=== PATIENT | female | born 1995 | race Caucasian/White ===

== ENCOUNTER 2017-03-02 17:25 | Emergency (ER) | payer MEDICAID ==
[~2017-03-02] VITALS: Ht 152.4 cm; Wt 52.9 kg
[~2017-03-02 17:25] MED LIST: CALC-143 PO; IBUP-1542 PO; PREN1TAB79 PO
[2017-03-02 17:37] VITALS: Ht 152.4 cm; Wt 52.9 kg
[2017-03-02] MEDS ORDERED: IBUPROFEN 600 MG TAB PO ONE (18:00)
--- NOTE | 2017-03-02 18:16 | ERD ---
ER Documentation Chief Complaint Chief Complaint Low back pain HPI 21-year-old female comes in with left-sided low back pain radiating down her left leg for over a year since she was . Patient states that she began having this pain and has been on and off for worsening over the last 3 days. She describes as an achy pain, diffuse, worse when she is walking or moving and better at rest. She is requesting x-rays at this time because she was told that they were not able to obtain any when she was . She denies saddle anesthesia loss of bowel bladder function, or any trauma associated. She denies fevers or chills, urinary complaints or hematuria. ROS All systems reviewed and are negative except as per history of present illness. Medications Home Meds Active Scripts Ibuprofen* (Motrin*) 600 Mg Tab, 600 MG PO Q6, #30 TAB Prov:LIBIA GUILLORY PA-C 03/02/17 Ibuprofen* (Ibuprofen*) 600 Mg Tablet, 600 MG PO Q6, #20 TAB 0 Refills Prov:SIGRID ALEXANDER MD 01/10/16 Reported Medications Calcium Citrate/Vitamin D (Citracal-Vitamin D 200 MG-250) 1 Each Tablet, 1 EACH PO BID, TAB 12/21/15 Vit W-Ca,Fe,FA(<1 mg) ( Vitamins) 1 Each Tablet, 1 EACH PO for 7 Days, TAB 10/24/15 Allergies Allergies: Coded Allergies: No Known Allergy (Unverified , 12/15/15) PMhx/Soc History of Surgery: No Anesthesia Reaction: No Hx Neurological Disorder: No Hx Respiratory Disorders: No Hx Cardiac Disorders: No Hx Psychiatric Problems: No Hx Miscellaneous Medical Probl: No Hx Alcohol Use: No Hx Substance Use: No Hx Tobacco Use: No Physical Exam Vitals Vital Signs Date Time Temp Pulse Resp B/P Pulse Ox O2 Delivery O2 Flow Rate FiO2 03/02/17 17:37 98.0 82 20 119/66 100 Physical Exam General: Well-developed, well-nourished. The patient appears in no acute distress. HEENT: Head is normocephalic, atraumatic. No scleral icterus. Neck: Supple. Nontender. Lungs: Clear to auscultation. Normal air movement. Heart: Regular rate and rhythm. S1 and S2 are normal. No murmurs, gallops, or rubs. Abdomen: Soft, nontender, nondistended. Bowel sounds are normoactive. Back: No midline pain, no step-offs, no ecchymosis, warmth, skin changes or rashes. Strength lower extremities 5 out of 5 bilaterally. Extremities: No clubbing or cyanosis. Normal pulses. Moving extremities x 4. No weakness. Neurologic: Alert and oriented 3. No focal deficits. Skin: Normal turgor. No rash or lesions. Results 24 hrs Current Medications Medications (Trade) Dose Ordered Sig/Kitty Route PRN Reason Start Time Stop Time Status Last Admin Dose Admin Ibuprofen (Motrin) 600 mg ONCE ONCE PO 03/02/17 18:00 03/02/17 18:01 DC 03/02/17 18:10 DIAGNOSTIC IMAGING REPORT Patient: DANNY COLON : 1995 Age: 21 Sex: F MR #: [id number] DOS: 03/02/17 1759 Ordering MD: LIBIA GUILLORY PA-C Location: [facility] Room/Bed: PROCEDURE: XR Lumbar Spine. CLINICAL INDICATION: Back pain for 3 days. TECHNIQUE: Three views. AP, lateral and cone-down lateral view of the lumbar spine were obtained. COMPARISON: No prior studies are available for comparison. FINDINGS: There is normal stature and alignment of the vertebrae. There is no fracture. There is no lytic or blastic lesion. The disk height is normal. The paravertebral soft tissues are unremarkable. IMPRESSION: 1. Unremarkable images of the lumbar spine. RPTAT: QQ .Kit Rossi MD, MD Date Time Electronically viewed and signed by .Kit Rossi MD, MD on 03/02/2017 19:36 .R/ CC: LIBIA GUILLORY PA-C Procedures/MDM 21-year-old female presents with low back pain on the left side, with radicular symptoms, most consistent with sciatica. She was advised that this is likely sciatica related, and unrelated to bony issues, but she is requesting an x-ray at this time. She does not show any signs of cauda equina, epidural abscess, discitis, dissection, UTI, pyelonephritis. X-ray is normal at this time, no bony abnormalities. Patient will be advised to take ibuprofen, return for any worsening symptoms including fever. Departure Diagnosis: Primary Impression: Sciatica Condition: Good LIBIA GUILLORY PA-C Mar 02, 2017 18:16
--- NOTE | 2017-03-02 19:36 | RADRPT ---
PROCEDURE: XR Lumbar Spine. CLINICAL INDICATION: Back pain for 3 days. TECHNIQUE: Three views. AP, lateral and cone-down lateral view of the lumbar spine were obtained. COMPARISON: No prior studies are available for comparison. FINDINGS: There is normal stature and alignment of the vertebrae. There is no fracture. There is no lytic or blastic lesion. The disk height is normal. The paravertebral soft tissues are unremarkable. IMPRESSION: 1. Unremarkable images of the lumbar spine. RPTAT: QQ .Kit Rossi MD, MD Date Time Electronically viewed and signed by .Kit Rossi MD, on 03/02/2017 19:36 .R/
[2017-03-02] MEDS ORDERED: IBUP-1542 PO (19:45)
== END 2017-03-02 19:54 | disposition home or self-care (01) ==
LOC: FTE 17:25
DX: M54.42 Lumbago with sciatica, left side (principal)
CPT/HCPCS: 72100; Z7502; Z7610

== ENCOUNTER 2017-07-01 22:12 | Emergency (ER) | END 2017-07-02 00:16 | disposition home or self-care (01) ==

== ENCOUNTER 2018-07-31 13:47 | Emergency (ER) | payer MEDICAID ==
[~2018-07-31] VITALS: Ht 157.5 cm; Wt 52.2 kg
[~2018-07-31 13:47] MED LIST changes: +CYCL10TA7 PO; +IBUP800T48 PO
[2018-07-31 13:49] VITALS: BP 139/65; PULSE 88; RESP 18; Ht 157.5 cm; Wt 52.2 kg
[2018-07-31] MEDS ORDERED: LIDOCAINE 1% (MPF) 5 ML VIAL INJ ONE (15:00)
[2018-07-31] MEDS ORDERED: BACI28.34 TOP (15:24)
--- NOTE | 2018-07-31 15:31 | ERD ---
ER Documentation Chief Complaint Chief Complaint LACERATION @ LEFT INDEX FINGER HPI 23-year-old female presenting with a laceration to left index finger. Patient was cutting with a knife and cut her index finger. She had her last tetanus shot 2 years ago. [id number]. Denies other medical problems. NKDA. Surgical history denies. Social history denies ROS All systems reviewed and are negative except as per history of present illness. Medications Home Meds Active Scripts Bacitracin* (Bacitracin Zinc Oint*) 28.35 Gm Oint, 1 APPLIC TOP BID, #1 TUB APPLI TO Prov:JAYOLN JACOBO PA-C 07/31/18 Ibuprofen* (Motrin*) 800 Mg Tab, 800 MG PO Q6H PRN for PAIN AND OR ELEVATED TEMP, #30 TAB Prov:LAURENCE PEARCE 07/01/17 Cyclobenzaprine Hcl* (Cyclobenzaprine Hcl*) 10 Mg Tablet, 10 MG PO Q12, #20 TAB Prov:LAURENCE PEARCE 07/01/17 Ibuprofen* (Motrin*) 600 Mg Tab, 600 MG PO Q6, #30 TAB Prov:LIBIA GUILLORY PA-C 03/02/17 Ibuprofen* (Ibuprofen*) 600 Mg Tablet, 600 MG PO Q6, #20 TAB 0 Refills Prov:SIGRID ALEXANDER MD 01/10/16 Reported Medications Calcium Citrate/Vitamin D (Citracal-Vitamin D 200 MG-250) 1 Each Tablet, 1 EACH PO BID, TAB 12/21/15 Vit W-Ca,Fe,FA(<1 mg) ( Vitamins) 1 Each Tablet, 1 EACH PO for 7 Days, TAB 10/24/15 Allergies Allergies: Coded Allergies: No Known Allergy (Unverified , 07/31/18) PMhx/Soc History of Surgery: No Anesthesia Reaction: No Hx Neurological Disorder: No Hx Respiratory Disorders: No Hx Cardiac Disorders: No Hx Psychiatric Problems: No Hx Miscellaneous Medical Probl: No Hx Alcohol Use: No Hx Substance Use: No Hx Tobacco Use: No Smoking Status: Never smoker FmHx Family History: No diabetes, No coronary disease, No other Physical Exam Vitals Vital Signs Date Temp Pulse Resp B/P (MAP) Pulse Ox O2 O2 Flow FiO2 Time Delivery Rate 07/31/18 98.2 88 18 139/65 100 13:49 (89) Physical Exam GENERAL: The patient is well-appearing, well-nourished, in no acute distress CHEST: Clear to auscultation bilaterally. There are no rales, wheezes or rhonchi. HEART: Regular rate and rhythm. No murmurs, clicks, rubs or gallops. EXTREMITIES: Able to nicely at the DIP and PIP joint. Neurovascularly intact. No active bleeding. NEUROLOGIC: Alert and oriented. Cranial nerves II through XII intact. Motor strength in all 4 extremities with 5 out of 5 strength. Sensation grossly intact. SKIN: 1.5 cm crescent saldivar-shaped block to the pad of the left index finger. Distal portion Results 24 hrs Current Medications Medications Dose Sig/Kitty Start Time Status Last (Trade) Ordered Route PRN Stop Time Admin Dose Reason Admin Lidocaine 5 ml ONCE ONCE 07/31/18 DC (Xylocaine INJ 15:00 1% (Mpf)) 07/31/18 15:01 Procedures/MDM Laceration Repair by me: Anesthesia: 1% lidocaine locally Location: left index finger Tendon/Joint/Nerves: No injury Foreign body: None detected after copious irrigation and exploration Technique: 6 5.0 N Simple Interrupted Sutures Complexity: No subcutaneous sutures/mucosal repair/edge excision Post Closure Length: 1.5 cm Patient's bleeding was easily controlled in the department and there is no indication of anemia. No evidence of compartment syndrome, neurologic injury, vascular injury, open joint, tendon laceration, or foreign body. Patient is appropriate for outpatient follow up. 48 hour wound check. Scar minimization instructions given. DM: 23-year-old female presenting with laceration to left index finger. I will suspicion for tendon injury. I have low suspicion for neuro deficit or vascular injury. Patient is discharged with strict ER precautions and told to follow-up with primary care. Patient is discharged with strict ER precautions and told to clean the area with soap and water. Patient has recommended to have sutures removed within 7 days. All questions answered at discharge Departure Diagnosis: Primary Impression: Laceration Condition: Stable Patient Instructions: Laceration, Hand Referrals: [facility] YOU HAVE RECEIVED A MEDICAL SCREENING EXAM AND THE RESULTS INDICATE THAT YOU DO NOT HAVE A CONDITION THAT REQUIRES URGENT TREATMENT IN THE EMERGENCY DEPARTMENT. FURTHER EVALUATION AND TREATMENT OF YOUR CONDITION CAN WAIT UNTIL YOU ARE SEEN IN YOUR DOCTORS OFFICE WITHIN THE NEXT 1-2 DAYS. IT IS YOUR RESPONSIBILITY TO MAKE AN APPOINTMENT FOR FOLOW-UP CARE. IF YOU HAVE A PRIMARY DOCTOR --you should call your primary doctor and schedule an appointment IF YOU DO NOT HAVE A PRIMARY DOCTOR YOU CAN CALL OUR PHYSICIAN REFERRAL HOTLINE AT IF YOU CAN NOT AFFORD TO SEE A PHYSICIAN YOU CAN CHOSE FROM THE FOLLOWING [facility] [id number] [facility] [address] [facility] [facility] [address] [facility] [address] [facility] [address] [facility] [facility]. [address] Additional Instructions: FOLLOW UP WITH YOUR PRIMARY CARE PHYSICIAN TOMORROW.Return to this facility if you are not improving as expected. JAYLON JACOBO PA-C Jul 31, 2018 15:31
== END 2018-07-31 15:35 | disposition home or self-care (01) ==
LOC: FTE 13:47
DX: S61.211A Laceration without foreign body of left index finger without damage to nail, initial encounter (principal); W26.0XXA Contact with knife, initial encounter; Y92.9 Unspecified place or not applicable
CPT/HCPCS: 12001; Z7502; Z7610

== ENCOUNTER 2018-08-06 17:58 | Emergency (ER) | payer MEDICAID ==
[~2018-08-06] VITALS: Ht 154.9 cm; Wt 51.6 kg
[~2018-08-06 17:58] MED LIST changes: +BACI28.34 TOP
[2018-08-06 18:01] VITALS: BP 117/62; PULSE 75; RESP 16; Ht 154.9 cm; Wt 51.6 kg
--- NOTE | 2018-08-06 19:39 | ERD ---
ER Documentation Chief Complaint Chief Complaint pt is bib self for sutural removal left index finger HPI 23-year-old female presents for a wound check and possible suture removal of left index finger laceration. It is day #7. She has no restricted range of motion weakness fevers. ROS All systems reviewed and are negative except as per history of present illness. Medications Home Meds Active Scripts Bacitracin* (Bacitracin Zinc Oint*) 28.35 Gm Oint, 1 APPLIC TOP BID, #1 TUB APPLI TO Prov:JAYLON JACOBO PA-C 07/31/18 Ibuprofen* (Motrin*) 800 Mg Tab, 800 MG PO Q6H PRN for PAIN AND OR ELEVATED TEMP, #30 TAB Prov:ARSALAN PEARCEAR F 07/01/17 Cyclobenzaprine Hcl* (Cyclobenzaprine Hcl*) 10 Mg Tablet, 10 MG PO Q12, #20 TAB Prov:ARSALAN PEARCEAR F 07/01/17 Ibuprofen* (Motrin*) 600 Mg Tab, 600 MG PO Q6, #30 TAB Prov:LIBIA GUILLORY PA-C 03/02/17 Ibuprofen* (Ibuprofen*) 600 Mg Tablet, 600 MG PO Q6, #20 TAB 0 Refills Prov:SIGRID ALEXANDER MD 01/10/16 Reported Medications Calcium Citrate/Vitamin D (Citracal-Vitamin D 200 MG-250) 1 Each Tablet, 1 EACH PO BID, TAB 12/21/15 Vit W-Ca,Fe,FA(<1 mg) ( Vitamins) 1 Each Tablet, 1 EACH PO for 7 Days, TAB 10/24/15 Allergies Allergies: Coded Allergies: No Known Allergy (Unverified , 07/31/18) PMhx/Soc History of Surgery: No Anesthesia Reaction: No Hx Neurological Disorder: No Hx Respiratory Disorders: No Hx Cardiac Disorders: No Hx Psychiatric Problems: No Hx Miscellaneous Medical Probl: No Hx Alcohol Use: No Hx Substance Use: No Hx Tobacco Use: No FmHx Family History: No diabetes, No coronary disease, No other Physical Exam Vitals Vital Signs Date Temp Pulse Resp B/P (MAP) Pulse Ox O2 O2 Flow FiO2 Time Delivery Rate 08/06/18 98.3 75 16 117/62 99 18:01 (80) Physical Exam Const: No acute distress Head: Atraumatic Eyes: Normal Conjunctiva ENT: Normal External Ears, Nose and Mouth. Neck: Full range of motion. No meningismus. Resp: Clear to auscultation bilaterally Cardio: Regular rate and rhythm, no murmurs Abd: Soft, non tender, non distended. Normal bowel sounds Skin: No petechiae or rashes Back: No midline or flank tenderness Ext: No cyanosis, or edema. Left index finger shows healing laceration with sutures intact. Neur: Awake and alert Psych: Normal Mood and Affect Procedures/MDM 2 sutures removed at the outermost edges of the lacerations. Appears to be a small separation upon partial removal suggesting wound is not quite healed. Remainder of sutures were left intact. She will be discharged home with recommendations for an additional 4 to 5-day recheck for remainder of suture removal and recheck. Wound is slightly macerated. Patient was counseled to allow wound to dry throughout the day to prevent maceration. No current signs of deficits, infection, ischemia. Departure Diagnosis: Primary Impression: Encounter for removal of sutures Condition: Stable Patient Instructions: Wound Check, Lac F/U (No Infection) Additional Instructions: STACY PAYTON 4-5 HOPPER PARA SACAR PUNTOS. GIORGIO RIGGS 2-3 VECES AL SEBASTIÁN. ALEJANDRA HAWTHORNE MD Aug 06, 2018 19:39
== END 2018-08-06 20:07 | disposition home or self-care (01) ==
LOC: FTE 17:58
DX: Z48.02 Encounter for removal of sutures (principal)
CPT/HCPCS: 99281

== ENCOUNTER 2018-12-08 09:08 | Emergency (ER) | payer SELFPAY ==
[~2018-12-08] VITALS: Ht 157.5 cm; Wt 52.1 kg
[~2018-12-08 09:08] MED LIST changes: +D-ME473S2 PO
[2018-12-08 09:12] VITALS: BP 111/61; PULSE 89; RESP 18; Ht 157.5 cm; Wt 52.1 kg
== END 2018-12-08 10:50 | disposition home or self-care (01) ==
LOC: FTE 09:08
DX: J06.9 Acute upper respiratory infection, unspecified (principal)
CPT/HCPCS: 71045; 81025